=== PATIENT | male | born 1985 | race Caucasian/White ===

== ENCOUNTER → 2017-11-26 15:48 | Outpatient (REF) | payer MEDICAID, SELFPAY ==
[2017-11-26 17:40] LABS: Basophils # 0.1 K/mm3 (0-0.2); Basophils % 0.7 % (0.1-2.0); Eosinophils # 0.2 K/mm3 (0.0-0.4); Eosinophils % 2.5 % (0.1-12.0); Hematocrit 52.1 % (42.0-52.0); Hemoglobin 17.4 g/dL (14.1-18.0); Lymphocytes # 2.4 K/mm3 (0.7-4.5); Lymphocytes % 31.2 K/mm3 (10-50); Mean Corpuscular HGB Conc 33.5 g/dL (31.8-35.4); Mean Corpuscular Volume 89.7 fl (80-94); Mean Platelet Volume 8.6 fl (7.4-10.4); Monocytes # 0.4 K/mm3 (0.1-1.0); Neutrophils # 4.6 K/mm3 (1.8-7.8); Neutrophils % 60.6 % (37.0-80.0); Platelet Count 198 K/mm3 (142-424); Red Blood Count 5.81 M/mm3 (4.60-6.20); White Blood Count 7.6 K/mm3 (4.8-10.8)
[2017-11-26 18:54] LABS: Alanine Aminotransferase 99 U/L (12-78); Albumin Level 3.7 gm/dL (3.4-5.0); Alkaline Phosphatase 89 U/L (46-116); Anion Gap 12.3 mEq/L (5-15); Aspartate Amino Transferase 50 U/L (15-37); Bilirubin,Total 0.3 mg/dL (0.2-1.0); Blood Urea Nitrogen 14 mg/dL (7-18); Calcium 9.3 mg/dL (8.5-10.1); Carbon Dioxide 29 mmol/L (21.0-32.0); Chloride 106 mmol/L (98-107); Chol/HDL Ratio 4.1 (1-3.5); Cholesterol 143 mg/dL (140-200); Creatinine,Serum 1.17 mg/dL (0.70-1.30); Estimated Glomerular Filt Rate 72 ml/min (>60); Free T4 (Free Thyroxine) 1.01 ng/dl (0.76-1.46); GFR (African American) 87 ML/MIN (>60); Globulin 3.8 gm/dl (1.3-3.2); Glucose 105 mg/dL (74-106); HDL Cholesterol 35 mg/dL (27-67); LDL Cholesterol 65 mg/dL (0-130); Potassium 4.3 mmoL/L (3.5-5.1); Sodium 143 mmol/L (136-145); Thyroid Stimulating Hormone 1.65 uIU/ml (0.358-3.740); Total Protein,Serum 7.5 gm/dL (6.4-8.2); Triglycerides 213 mg/dL (30-200); VLDL Cholesterol 43 mg/dL (0-40)
[2017-11-26 19:33] LABS: Hemoglobin A1C 5.6 % (0.0-7.0)
[2017-11-29 13:32] LABS: Vitamin D 25 Hydroxy 29.6 ng/mL (30.0-100.0)
== END ==
LOC: LAB 15:48
PROVIDERS: Visit Provider Nurse Practitioner Family
DX: I10 Essential (primary) hypertension (principal); R53.83 Other fatigue
CPT/HCPCS: 80053; 80061; 82652; 83036; 84439; 84443; 85025

== ENCOUNTER → 2017-12-03 09:01 | Outpatient (CLI) | payer MEDICAID, SELFPAY | PROVIDERS: Visit Provider Nurse Practitioner Family | DX: R74.8 Abnormal levels of other serum enzymes (principal) ==

== ENCOUNTER → 2018-01-02 08:53 | Outpatient (REF) | payer MEDICAID, SELFPAY ==
[2018-01-04 08:30] LABS: Hep A Ab, IgM Negative (Negative); Hepatitis B Core Antibody IgM Negative (Negative); Hepatitis B Surface Antigen Negative (Negative)
[2018-01-04 18:28] LABS: Hepatitis C Antibody <0.1 s/co ratio (0.0-0.9)
== END ==
LOC: LAB 08:53
PROVIDERS: Visit Provider Nurse Practitioner Family
DX: R74.8 Abnormal levels of other serum enzymes (principal)
CPT/HCPCS: 80074

== ENCOUNTER → 2018-12-11 13:29 | Outpatient (CLI) | payer OTHER, SELFPAY | PROVIDERS: PCP Nurse Practitioner Family; Visit Provider Nurse Practitioner Family | DX: M54.2 Cervicalgia (principal) ==

== ENCOUNTER → 2019-12-14 14:53 | Outpatient (CLI) | payer BC, SELFPAY ==
[2019-12-16 13:31] LABS: Covid-19 Nasal PCR Sendout Lex Not Detected
== END ==
LOC: COVID.OUT 14:55
PROVIDERS: PCP Emergency Medicine; Visit Provider Emergency Medicine
DX: Z03.818 Encounter for observation for suspected exposure to other biological agents ruled out (principal)
CPT/HCPCS: U0004

== ENCOUNTER 2023-02-23 15:39 | Observation (INO) | payer OTHER, SELFPAY ==
[2023-02-23] VITALS (7 sets, daily range): BP systolic 146–191; BP diastolic 64–107; PULSE 77–106; RESP 18–20; TEMP 36.8–37.3; O2SAT 98–100; BMI 35.9; BMI 35.0
[2023-02-23 16:05] LABS: Microscopic, Urine URINE MICROSCOPIC (MICROSCOPIC)
[2023-02-23 16:13] LABS: Appearance,Urine CLEAR (Clear); Color,Urine YELLOW (Yellow)
[2023-02-23 16:14] LABS: Blood, Urine Negative (Negative); Glucose,Urine (UA) 3+ (Negative); Ketones,Urine 2+ (Negative); Leukocyte Esterase,Urine Negative (Negative); Nitrate,Urine Negative (Negative); Protein,Urine TRACE (Negative); Specific Gravity, Urine 1.015 (1.005-1.030)
[2023-02-23 16:16] LABS: Bilirubin,Urine 1+ (Negative)
[2023-02-23 16:16] LABS: Basophils % 0.2 % (0.1-2.0); Eosinophils # 0.1 K/mm3 (0.0-0.4); Eosinophils % 0.5 % (0.1-12.0); Hemoglobin 12.6 g/dL (14.1-18.0); Lymphocytes # 1.8 K/mm3 (0.7-4.5); Lymphocytes % 15.4 % (10-50); Mean Corpuscular HGB Conc 30.7 g/dL (31.8-35.4); Mean Corpuscular Hemoglobin 21.7 pg (27.0-31.2); Mean Corpuscular Volume 70.6 fl (80-94); Mean Platelet Volume 8.6 fl (7.4-10.4); Monocytes # 0.6 K/mm3 (0.1-1.0); Monocytes % 4.9 % (1.7-9.3); Neutrophils # 9.1 K/mm3 (1.8-7.8); Neutrophils % 78.9 % (37.0-80.0); Platelet Count 194 K/mm3 (142-424); Red Blood Count 5.81 M/mm3 (4.60-6.20); Red Cell Distribution Width 19.2 % (11.5-17.5); White Blood Count 11.5 K/mm3 (4.8-10.8)
[2023-02-23 16:17] LABS: Alanine Aminotransferase 57 U/L (12-78); Albumin Level 3.9 g/dl (3.5-5.0); Albumin/Globulin Ratio 0.9 (1.1-1.8); Alkaline Phosphatase 105 U/L (38-126); Anion Gap 17.1 mEq/L (5-15); Aspartate Amino Transferase 49 U/L (17-59); Bilirubin,Total 1.9 mg/dl (0.2-1.3); Blood Urea Nitrogen 11 mg/dl (9-20); Calcium 8.9 mg/dl (8.4-10.2); Carbon Dioxide 24 mmol/L (22.0-30.0); Chloride 96 mmol/L (98-107); Creatinine Clearance Estimated 281 mL/min (50-200); Estimated Glomerular Filt Rate 150 ml/min (>60); GFR (African American) 181 ML/MIN (>60); Globulin 4.3 g/dL (1.3-3.2); Glucose 314 mg/dl (74-100); Potassium 4.1 mmoL/L (3.5-5.1); Sodium 133 mmol/L (136-145); Total Protein,Serum 8.2 g/dl (6.3-8.2)
[2023-02-23 16:20] LABS: Lipase 704 U/L (23-300)
--- NOTE | 2023-02-23 16:20 | PC.NURSE ---
Dr. Tomlin at BS
--- NOTE | 2023-02-23 16:22 | PC.NURSE ---
notified dr. anna of critical lipase
--- NOTE | 2023-02-23 16:25 | PC.NURSE ---
Dr. Tomlin at BS with [employer]
--- NOTE | 2023-02-23 16:32 | CT_ITS ---
PROCEDURE INFORMATION: Exam: CT Abdomen And Pelvis With Contrast Exam date and time: 02/23/2023 4:47 PM Age: 38 years old Clinical indication: Pain; Other: Epigastric; Additional info: Epigastric abd pain, worsening, free fluid on US TECHNIQUE: Imaging protocol: Computed tomography of the abdomen and pelvis with contrast. Radiation optimization: All CT scans at this facility use at least one of these dose optimization techniques: automated exposure control; mA and/or kV adjustment per patient size (includes targeted exams where dose is matched to clinical indication); or iterative reconstruction. Contrast material: ISOVUE; Contrast volume: 75 ml; Contrast route: IV; REPORTING DATA: Count of CT and Cardiac NM exams in prior 12 months: This patient has received 0 known CTs and 0 known cardiac nuclear medicine studies in the 12 months prior to the current study. COMPARISON: CR (AP PELVIS, PELVIS, PELVIS AP) 12/01/2018 6:49 AM FINDINGS: Liver: Hepatic cirrhosis. Gallbladder and bile ducts: Normal. No calcified stones. No ductal dilation. Pancreas: Normal. No ductal dilation. Spleen: Splenomegaly measures 15.5 cm in craniocaudal dimension. Adrenal glands: Normal. No mass. Kidneys and ureters: Normal. No hydronephrosis. Stomach and bowel: Marked wall thickening within small bowel loops in the right abdomen, with wall measuring up to 12 mm. Closed loop obstruction can not be excluded. Appendix: No evidence of appendicitis. Intraperitoneal space: Adjacent mesenteric edema. No proximal obstruction. Mild abdominal and pelvic ascites. Vasculature: Esophageal varices. Splenorenal varices. Recanalization of the umbilical vein. Lymph nodes: Unremarkable. No enlarged lymph nodes. Urinary bladder: Unremarkable as visualized. Reproductive: Unremarkable as visualized. Bones/joints: Unremarkable. No acute fracture. Soft tissues: Unremarkable. IMPRESSION: 1. Marked wall thickening within small bowel loops in the right abdomen, with wall measuring up to 12 mm. Adjacent mesenteric edema. No proximal obstruction. Closed loop obstruction can not be excluded. 2. Hepatic cirrhosis. 3. Sequela of portal hypertension as detailed above. 4. Mild abdominal and pelvic ascites.
--- NOTE | 2023-02-23 16:34 | HMH.EDGENADL ---
Discharge Plan Disposition Patient Disposition: Admitted Chief Complaint: Abdominal Pain Referrals Follow up/Referrals: Barbara Painting PA [Primary Care Provider] - See instructions Clinical Impressions Clinical Impression: Acute pancreatitis, Cirrhosis, Ascites, Hypertension, portal Instructions Patient Instructions: DI for Acute Abdominal Pain Discharge ED Provider: John Petersen General Adult HPI General Chief complaint: Abdominal Pain Stated complaint: upper stomach pain Time Seen by Provider: 02/23/23 16:14 Mode of Arrival: Ambulatory Source of Information: Patient Limitations: No Limitations Description of Symptoms (Recalled from ER Triage Doc. by RN): Patient reports constant RUQ pain. States he was seen at [facility] where he was diagnosed with new onset diabetes. States that the pain is worse after eating. History of Present Illness HPI narrative: Patient is a 38-year-old male here with worsening epigastric pain following a recent ED visit. States this began several days ago he went to [place] emergency department where he had a right upper quadrant ultrasound and lab tests that have the results with him ultrasound was read as no acute abnormality, lipase and LFTs were within normal limits. Was told to follow-up with a GI doctor outpatient. Since that time he had worsening epigastric pain and pretty severe and he has not had anything to eat since that time. No vomiting or diarrhea. He does state that he drinks heavily 6-7 beers a day on average and his last drink was just prior to his ED visit at [facility]. Denies any fevers or chills. No history of any pancreatitis. No history of any hypertriglyceridemia. Related Data Allergies Allergy/AdvReac Type Severity Reaction Status Date / Time Penicillins [PENICILLINS] Allergy Unknown Verified 02/11/20 08:23 [facility] Disclaimer: The information contained in this section may have been updated after the patient was seen, as this information can be updated by other users. Social History Smoking Status: Never smoker alcohol intake: never substance use type: former substance user and opiates current occupational status: employed Travel in the last 8 weeks: None household members: spouse housing: house ROS Obtained: Yes All systems reviewed & no additional complaints except as documented Physical Exam General General appearance: alert Respiratory Respiratory exam: Present normal lung sounds bilaterally Cardiovascular Cardiovascular exam: Present regular rate; Absent tachycardia Abdominal Exam Abdominal exam: Present distention and tenderness (Epigastric tenderness palpation is no rebound or guarding elsewhere no fluid wave) Neurological Exam Neurological exam: Present alert and oriented X3 Medical Decision Making Robbi Inquiry Pt receiving controlled substance: No Vital Signs: 02/23/23 15:40 02/23/23 16:54 02/23/23 17:00 Temperature 98.2 F Temperature Source Oral Pulse Rate 80 84 Pulse Rate [Radial] 106 H Respiratory Rate 18 Blood Pressure 156/80 H 157/86 H Blood Pressure [Right Arm] 191/107 H Blood Pressure Mean 105 110 Blood Pressure Mean [Right Arm] 135 Blood Pressure Source [Right Arm] Automatic Cuff Blood Pressure Position [Right Arm] Sitting 02 Sat by Pulse Oximetry 98 100 100 Oxygen Delivery Method Room Air Lab Data Lab Results 02/23/23 15:46: Urine Color Yellow, Urine Appearance Clear, Urine pH 6.0, Ur Specific [place] 1.015, Urine Protein Trace, Urine Glucose (UA) 3+, Urine Ketones 2+, Urine Blood Negative, Urine Nitrate Negative, Urine Bilirubin 1+ A, Urine Urobilinogen 2.0, Ur Leukocyte Esterase Negative, Urine RBC None, Urine WBC Occasional, Ur Squamous Epith Cells None, Urine Bacteria None 02/23/23 15:50: WBC 11.5 H, RBC 5.81, Hgb 12.6 L, Hct 41.0 L, MCV 70.6 L, MCH 21.7 L, MCHC 30.7 L, RDW 19.2 H, Plt Count 194, MPV 8.6, Neut % (Auto) 78.9, Lymph % (Auto) 15.4, [place] % (Auto) 4.9,
[2023-02-23 16:35] LABS: WBC,Urine Occasional #/hpf (0-3)
[2023-02-23 16:45] LABS: Prothrombin Time 11.8 seconds (10.1-12.5)
--- NOTE | 2023-02-23 16:49 | PC.NURSE ---
pt returned from radiology.
--- NOTE | 2023-02-23 16:49 | PC.NURSE ---
Pt returned from RAD
--- NOTE | 2023-02-23 17:20 | PC.NURSE ---
ER MD Tomlin speaking with Dr. Garza
--- NOTE | 2023-02-23 17:23 | PC.NURSE ---
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
--- NOTE | 2023-02-23 17:44 | PC.NURSE ---
Report given to Fern on Med Surg.
--- NOTE | 2023-02-23 17:44 | PC.NURSE ---
Pt transferred to 2nd floor via wheelchair with SRNA
--- NOTE | 2023-02-23 18:15 | PC.NURSE ---
A&OX4. TOLERATING RA WELL. PT HAS HAD NO NEEDS OR C/O THUS FAR SINCE ARRIVAL TO FLOOR. AT BEDSIDE. VSS.
--- NOTE | 2023-02-23 18:44 | EXP.HP ---
History of Present Illness *Admission Date: 02/23/23 *Reason for visit:: abdominal pain *History of present illness: Mr. Mistry is a 38-year-old male with history of hypertension, obesity, alcoholism. Presented to the ER because of constant right upper quadrant pain. States he was seen at [place] a few days ago where he was diagnosed with new onset diabetes. Denies any other abnormal findings after doing an ultrasound of his abdomen. Was sent home. On arrival to the ER, patient states he been having worsening epigastric and right upper quadrant pain for the past week. Previous ER visit with reportedly normal lipase and LFTs. Was recommended to follow-up with a GI doctor as an outpatient. His pain is only worsened since last ER visit at outside hospital. He has had some nausea, diarrhea. No julienne emesis. Previously drank heavily with 6-7 beers a day on average, last drink about a week ago. Denies any fever, chills, cough, shortness of breath, chest pain. No previous history of cirrhosis that he knows of or pancreatitis. Work-up in the ER positive for elevated lipase in the 700s. CT of the abdomen shows inflammation of small bowel in the right side of his abdomen along with mesenteric inflammation. Liver concerning for signs of cirrhosis with portal hypertension. Ascites appreciated. ER consulted medicine for admission for management of his pancreatitis and abdominal pain. On admission to the floor, patient is in bedside chair. States he is more comfortable in the chair than lying down. Stable on room air. Afebrile. Denies any shortness of breath or chest pain. Abdomen tender in right side, less so on the left. No rebound on the right but questionable rebound on the left. Has active bowel sounds. Appears uncomfortable. [facility] Disclaimer: The information contained in this section may have been updated after the patient was seen, as this information can be updated by other users. Medical History (Updated 02/23/23 @ 19:38 by Shant Garza MD) Hypertension Obesity (BMI 30.0-34.9) Family History (Updated 02/23/23 @ 19:21 by Shant Garza MD) Family history non-contributory Social History Smoking Status: Never smoker alcohol intake: never substance use type: former substance user and opiates current occupational status: employed Travel in the last 8 weeks: None household members: spouse housing: house Review of Systems Review of Systems Review of systems (narrative): 14 point review of systems performed, pertinent positives and negatives as per HPI Meds Home Medications and Allergies Home Medications Medication Instructions Recorded Confirmed Type metformin 500 mg tablet 500 mg PO DAILY Diabetes 02/23/23 02/23/23 History pantoprazole 40 mg tablet,delayed 40 mg PO DAILY gerd 02/23/23 02/23/23 History release New Prescriptions to Start Prescriptions: Allergies Allergy/AdvReac Type Severity Reaction Status Date / Time Penicillins [PENICILLINS] Allergy Unknown Verified 02/11/20 08:23 Exam Data for Last 24 hours Vital signs and Labs for Last 24 Hours: Temp Pulse Resp BP Pulse Ox O2 Del Method 98.2 F 77 18 146/64 H 98 Room Air 02/23/23 18:00 02/23/23 18:00 02/23/23 18:00 02/23/23 18:00 02/23/23 18:00 02/23/23 18:36 Laboratory Results - last 24 hr 02/23/23 15:46: Urine Color Yellow, Urine Appearance Clear, Urine pH 6.0, Ur Specific [place] 1.015, Urine Protein Trace, Urine Glucose (UA) 3+, Urine Ketones 2+, Urine Blood Negative, Urine Nitrate Negative, Urine Bilirubin 1+ A, Urine Urobilinogen 2.0, Ur Leukocyte Esterase Negative, Urine RBC None, Urine WBC Occasional, Ur Squamous Epith Cells None, Urine Bacteria None 02/23/23 15:50: WBC 11.5 H, RBC 5.81, Hgb 12.6 L, Hct 41.0 L, MCV 70.6 L, MCH 21.7 L, MCHC 30.7 L, RDW 19.2 H, Plt Count 194, MPV 8.6, Neut % (Auto) 78.9, Lymph % (Auto) 15.4, [place] % (Auto) 4.9, Eos % (Auto) 0.5, Baso % (Auto) 0.2, Neut
[2023-02-23 19:52] LABS: Hemoglobin A1C 10.9 % (4.0-6.0)
[2023-02-23 20:03] LABS: POC Glucose,Bedside 239 (70-110)
[2023-02-24 04:00] VITALS: BP 159/89; PULSE 91; RESP 18; TEMP 36.9; O2SAT 94; BMI 35.3
--- NOTE | 2023-02-24 05:21 | PC.NURSE ---
no acute changes t/o shift. pt passing gas. c/o abd pain, tx per aug. denies n/v. used k-pad for safety
--- NOTE | 2023-02-24 05:23 | PC.NURSE ---
no acute changes t/o shift. pt passing gas. c/o abd pain, tx per aug. denies n/v. used k-pad for pain relief
[2023-02-24 05:56] LABS: POC Glucose,Bedside 216 (70-110)
[2023-02-24 07:28] VITALS: BP 182/90; PULSE 79; RESP 16; TEMP 36.8; O2SAT 99
[2023-02-24 07:30] LABS: Basophils % 0.2 % (0.1-2.0); Eosinophils # 0.1 K/mm3 (0.0-0.4); Hematocrit 39.8 % (42.0-52.0); Lymphocytes # 1.3 K/mm3 (0.7-4.5); Lymphocytes % 20.9 % (10-50); Mean Corpuscular HGB Conc 30.2 g/dL (31.8-35.4); Mean Corpuscular Hemoglobin 21.7 pg (27.0-31.2); Mean Corpuscular Volume 71.9 fl (80-94); Mean Platelet Volume 8.8 fl (7.4-10.4); Monocytes # 0.3 K/mm3 (0.1-1.0); Monocytes % 5.1 % (1.7-9.3); Neutrophils # 4.6 K/mm3 (1.8-7.8); Neutrophils % 72.9 % (37.0-80.0); Platelet Count 149 K/mm3 (142-424); Red Blood Count 5.54 M/mm3 (4.60-6.20); Red Cell Distribution Width 19.3 % (11.5-17.5); White Blood Count 6.4 K/mm3 (4.8-10.8)
[2023-02-24 07:32] LABS: INR 1.08 (0.9-1.1); Prothrombin Time 11.6 seconds (10.1-12.5)
[2023-02-24 07:33] LABS: Chol/HDL Ratio 3.7 (1-3.5); Cholesterol 103 mg/dl (140-200); HDL Cholesterol 28 mg/dl (40-60); Triglycerides 106 mg/dl (30-150); VLDL Cholesterol 21 mg/dL (0-40)
[2023-02-24 07:35] LABS: Alanine Aminotransferase 42 U/L (12-78); Albumin Level 3.5 g/dl (3.5-5.0); Albumin/Globulin Ratio 0.9 (1.1-1.8); Alkaline Phosphatase 92 U/L (38-126); Anion Gap 11.8 mEq/L (5-15); Aspartate Amino Transferase 34 U/L (17-59); Bilirubin,Total 1.3 mg/dl (0.2-1.3); Blood Urea Nitrogen 10 mg/dl (9-20); Calcium 8.6 mg/dl (8.4-10.2); Carbon Dioxide 29 mmol/L (22.0-30.0); Chloride 96 mmol/L (98-107); Creatinine Clearance Estimated 277 mL/min (50-200); Estimated Glomerular Filt Rate 150 ml/min (>60); GFR (African American) 181 ML/MIN (>60); Globulin 3.7 g/dL (1.3-3.2); Glucose 212 mg/dl (74-100); Magnesium 1.8 mg/dl (1.6-2.3); Potassium 3.8 mmoL/L (3.5-5.1); Sodium 133 mmol/L (136-145); Total Protein,Serum 7.2 g/dl (6.3-8.2)
[2023-02-24 07:44] LABS: C-Reactive Protein 80.1 mg/L (0-4); Direct LDL Cholesterol 52.36 mg/dL (100-129)
[2023-02-24 07:56] LABS: Lipase 81 U/L (23-300)
[2023-02-24 08:05] LABS: Erythrocyte Sedimentation Rate 16 mm/hr (0-15)
[2023-02-24 08:18] LABS: Iron 37 ug/dL (49-181)
[2023-02-24 08:27] LABS: Total Iron Binding Capacity 342 ug/dL (261-462)
--- NOTE | 2023-02-24 10:51 | HMH.PHAINT1 ---
Pharmacy Intervention Comments: MEDICATION RECONCILIATION COMPLETED ON PATIENT USING EXTERNAL FILL HISTORY FROM PHARMACY. -SAMMY SANDOVAL, [employer]
[2023-02-24 11:04] VITALS: BP 172/82; PULSE 78; RESP 16; TEMP 36.8; O2SAT 99
[2023-02-24 11:21] LABS: POC Glucose,Bedside 223 (70-110)
[2023-02-24 15:00] VITALS: BP 168/96; PULSE 83; RESP 16; TEMP 36.8; O2SAT 98
--- NOTE | 2023-02-24 15:32 | EXP.ACUTE.PN ---
Subjective *Date: 02/24/23 *Time: 15:32 Interval history: Patient feeling better this morning. Passed gas frequently overnight and reports improvement in abdominal discomfort. No nausea or vomiting overnight. Blood pressure elevated on morning rounds at 182/92. Has been tolerating liquid intake without difficulty. No fevers. Medical Exam Vital signs and Labs for Last 24 Hours: Vital Signs Temp Pulse Pulse Resp BP BP Pulse Ox 02/24/23 15:00 98.2 F 83 16 168/96 H 98 02/24/23 14:53 02/24/23 12:31 02/24/23 11:04 98.2 F 78 16 172/82 H 99 02/24/23 10:49 02/24/23 09:00 02/24/23 07:28 98.2 F 79 16 182/90 H 99 02/24/23 04:00 98.5 F 91 H 18 159/89 H 94 L 02/24/23 06:41 02/24/23 04:41 02/24/23 03:00 02/24/23 01:00 02/23/23 23:00 02/23/23 21:00 02/23/23 20:00 99.1 F 80 20 174/90 H 99 02/23/23 19:59 02/23/23 18:36 02/23/23 18:26 02/23/23 18:00 98.2 F 77 18 146/64 H 98 02/23/23 17:45 98.4 F 81 18 146/64 H 02/23/23 17:31 89 177/94 H 99 02/23/23 17:00 84 157/86 H 100 02/23/23 16:54 80 156/80 H 100 02/23/23 15:40 98.2 F 106 H 18 191/107 H 98 O2 Del Method 02/24/23 15:00 Room Air 02/24/23 14:53 Room Air 02/24/23 12:31 Room Air 02/24/23 11:04 Room Air 02/24/23 10:49 Room Air 02/24/23 09:00 Room Air 02/24/23 07:28 Room Air 02/24/23 04:00 Room Air 02/24/23 06:41 Room Air 02/24/23 04:41 Room Air 02/24/23 03:00 Room Air 02/24/23 01:00 Room Air 02/23/23 23:00 Room Air 02/23/23 21:00 Room Air 02/23/23 20:00 Room Air 02/23/23 19:59 Room Air 02/23/23 18:36 Room Air 02/23/23 18:26 Room Air 02/23/23 18:00 Room Air 02/23/23 17:45 Room Air 02/23/23 17:31 02/23/23 17:00 02/23/23 16:54 02/23/23 15:40 Room Air Intake and Output 02/23/23 02/24/23 02/24/23 23:59 07:59 15:59 Intake Total 490 / 910 420 / 910 Output Total 0 / 0 0 / 0 Balance 490 / 910 420 / 910 Intake: Intake, Oral Amount 330 / 750 420 / 750 Intake, Other Amount 60 / 60 Intake, Total IV Amount 100 / 100 Metronidaz/Sod Chl 500 mg In 100 / 100 100 ml @ 100 mls/hr IV Q8H [facility] Rx#:[id number] Output: Output, Urine Amount 0 / 0 0 / 0 Other: Intake, Other Source Saline Solution Number of Unmeasured Voids 1 1 Weight 117.197 kg 118.388 kg Patient Weight 02/24/23 23:59 Weight 118.388 kg Laboratory Results - last 24 hr 02/23/23 15:46: Urine Color Yellow, Urine Appearance Clear, Urine pH 6.0, Ur Specific [place] 1.015, Urine Protein Trace, Urine Glucose (UA) 3+, Urine Ketones 2+, Urine Blood Negative, Urine Nitrate Negative, Urine Bilirubin 1+ A, Urine Urobilinogen 2.0, Ur Leukocyte Esterase Negative, Urine RBC None, Urine WBC Occasional, Ur Squamous Epith Cells None, Urine Bacteria None 02/23/23 15:50: WBC 11.5 H, RBC 5.81, Hgb 12.6 L, Hct 41.0 L, MCV 70.6 L, MCH 21.7 L, MCHC 30.7 L, RDW 19.2 H, Plt Count 194, MPV 8.6, Neut % (Auto) 78.9, Lymph % (Auto) 15.4, [place] % (Auto) 4.9, Eos % (Auto) 0.5, Baso % (Auto) 0.2, Neut # (Auto) 9.1 H, Lymph # (Auto) 1.8, [place] # (Auto) 0.6, Eos # (Auto) 0.1, Baso # (Auto) 0.0, PT 11.8, INR 1.10, Sodium 133 L, Potassium 4.1, Chloride 96 L, Carbon Dioxide 24, Anion Gap 17.1 H, BUN 11, Creatinine 0.60 L, Estimated Creat Clear 281, Estimated GFR 150, Est GFR ( Amer) 181, Glucose 314 H, Hemoglobin A1c 10.9 H, Calcium 8.9, Total Bilirubin 1.9 H, AST 49, ALT 57, Alkaline Phosphatase 105, Total Protein 8.2, Albumin 3.9, Globulin 4.3 H, Albumin/Globulin Ratio 0.9 L, Lipase 704 H 02/23/23 19:52: POC Glucose 239 H 02/24/23 05:14: POC Glucose 216 H 02/24/23 07:07: WBC 6.4 D, RBC 5.54, Hgb 12.0 L, Hct 39.8 L, MCV 71.9 L, MCH 21.7 L, MCHC 30.2 L, RDW 19.3 H, Plt Count 149, MPV 8.8, Neut % (Auto) 72.9, Lymph % (Auto) 20.9, [place] % (Auto) 5.1, Eos % (Auto) 1.0, Baso % (Auto) 0.2, Neut # (Auto)
[2023-02-24 16:53] LABS: POC Glucose,Bedside 214 (70-110)
--- NOTE | 2023-02-24 18:45 | PC.NURSE ---
Pt has reported abdominal pain regularly this shift and given celina medication for relief. Medication seems to relieve pain enough to allow pt to rest comfortably. Pt blood glucose has been elevated this shift and has required coverage of 4 units each time. Nurse x2 provide education for insulin administration, Pt demonstrated and verbalized understanding, questions were encouraged and answered. Pt has upcoming ultrasound of liver scheduled for tomorrow, Pt denies other needs at this time.
[2023-02-24 20:00] VITALS: BP 157/77; PULSE 89; RESP 18; TEMP 37.1; O2SAT 99
[2023-02-24 20:41] LABS: POC Glucose,Bedside 214 (70-110)
[2023-02-25] VITALS: BP 145/76; PULSE 84; RESP 18; TEMP 37; O2SAT 98
--- NOTE | 2023-02-25 | US_ITS ---
FINAL REPORT CLINICAL HISTORY: Right upper quadrant pain and cirrhosis COMPARISON: None FINDINGS: Sonographic images of the right upper quadrant were obtained. The pancreas is partially obscured. There is a heterogeneous hepatic echotexture consistent with history of cirrhosis. There is a moderate amount of ascites. The portal vein measures 16 mm, dilated. It has normal directional flow. The gallbladder appears normal without evidence of gallstones.There is no evidence of biliary ductal dilatation.The common duct measures 3 mm. Limited images of the right kidney are unremarkable. IMPRESSION: Hepatic appearance consistent with history of cirrhosis. Moderate ascites. Dilated portal vein. Reviewed, Interpreted and Dictated by Alvaro Olivas III, MD Transcribed by Bailee Foster Authenticated and . [facility]
[2023-02-25 04:00] VITALS: BP 146/80; PULSE 79; RESP 18; TEMP 36.8; O2SAT 99; BMI 35.2
[2023-02-25 06:24] LABS: POC Glucose,Bedside 186 (70-110)
[2023-02-25 07:35] LABS: Basophils % 0.2 % (0.1-2.0); Eosinophils # 0.1 K/mm3 (0.0-0.4); Eosinophils % 2.1 % (0.1-12.0); Hematocrit 40.1 % (42.0-52.0); Hemoglobin 12.2 g/dL (14.1-18.0); Lymphocytes # 1.1 K/mm3 (0.7-4.5); Lymphocytes % 24.7 % (10-50); Mean Corpuscular HGB Conc 30.4 g/dL (31.8-35.4); Mean Corpuscular Hemoglobin 21.9 pg (27.0-31.2); Mean Platelet Volume 7.5 fl (7.4-10.4); Monocytes # 0.3 K/mm3 (0.1-1.0); Monocytes % 6.8 % (1.7-9.3); Neutrophils % 66.2 % (37.0-80.0); Platelet Count 160 K/mm3 (142-424); Red Blood Count 5.57 M/mm3 (4.60-6.20); Red Cell Distribution Width 19.5 % (11.5-17.5); White Blood Count 4.5 K/mm3 (4.8-10.8)
[2023-02-25 07:38] LABS: Alanine Aminotransferase 39 U/L (12-78); Albumin Level 3.4 g/dl (3.5-5.0); Albumin/Globulin Ratio 0.9 (1.1-1.8); Alkaline Phosphatase 90 U/L (38-126); Anion Gap 11.1 mEq/L (5-15); Aspartate Amino Transferase 46 U/L (17-59); Blood Urea Nitrogen 10 mg/dl (9-20); Calcium 8.6 mg/dl (8.4-10.2); Carbon Dioxide 33 mmol/L (22.0-30.0); Chloride 97 mmol/L (98-107); Creatinine Clearance Estimated 236 mL/min (50-200); Estimated Glomerular Filt Rate 126 ml/min (>60); GFR (African American) 152 ML/MIN (>60); Globulin 3.6 g/dL (1.3-3.2); Glucose 193 mg/dl (74-100); Magnesium 1.9 mg/dl (1.6-2.3); Potassium 4.1 mmoL/L (3.5-5.1); Sodium 137 mmol/L (136-145)
[2023-02-25 07:43] LABS: C-Reactive Protein 47.6 mg/L (0-4)
[2023-02-25 07:53] VITALS: BP 146/88; PULSE 85; RESP 18; TEMP 36.9; O2SAT 97
[2023-02-25 09:40] LABS: Adenovirus F 40/41, stool Not Detected (NotDetected); Astrovirus Not Detected (NotDetected); Campylobacter Not Detected (NotDetected); Clostridium Difficile A/B, PCR Not Detected (NotDetected); Cryptosporidium Not Detected (NotDetected); Cyclospora Cayetanesis Not Detected (NotDetected); Entamoeba histolytica Not Detected (NotDetected); Enteroaggregative E coli Not Detected (NotDetected); Enteropathogenic E coli Not Detected (NotDetected); Enterotoxigenic E coli Not Detected (NotDetected); Giardia lamblia Not Detected (NotDetected); Norovirus Not Detected (NotDetected); Plesimonas Shigalloides, PCR Not Detected (NotDetected); Rotavirus A Not Detected (NotDetected); Salmonella, PCR Not Detected (NotDetected); Sapovirus Not Detected (NotDetected); Shiga-like toxin E coli Not Detected (NotDetected); Shigella Enterovasive E coli Not Detected (NotDetected); Vibrio Cholerae Not Detected (NotDetected); Vibrio, PCR Not Detected (NotDetected); Yersinia Entercolitica, PCR Not Detected (NotDetected)
[2023-02-25 11:17] VITALS: BP 150/84; PULSE 80; RESP 17; TEMP 36.8; O2SAT 99
[2023-02-25 11:55] LABS: POC Glucose,Bedside 193 (70-110)
--- NOTE | 2023-02-25 13:10 | DIET.NUTRFU ---
Patient plans to discharge today, he is a newly dx DM. Provided and reviewed multiple handouts on what foods to count and how many he is allowed to have. Also reviewed the dietary label and what values to look for. He was on metformin [employer] with A1c of 10.9. Family was present during instruction and they seemed receptive to information. provided contact information for further follow-up as needed.
--- NOTE | 2023-02-25 13:22 | EXP.DC.SUM ---
General Admission date:: 02/23/23 Discharge date: 02/25/23 HPI HPI HPI: Mr. Mistry is a 38-year-old male with history of hypertension, obesity, alcoholism. Presented to the ER because of constant right upper quadrant pain. States he was seen at [place] a few days ago where he was diagnosed with new onset diabetes. Denies any other abnormal findings after doing an ultrasound of his abdomen. Was sent home. On arrival to the ER, patient states he been having worsening epigastric and right upper quadrant pain for the past week. Previous ER visit with reportedly normal lipase and LFTs. Was recommended to follow-up with a GI doctor as an outpatient. His pain is only worsened since last ER visit at outside hospital. He has had some nausea, diarrhea. No julienne emesis. Previously drank heavily with 6-7 beers a day on average, last drink about a week ago. Denies any fever, chills, cough, shortness of breath, chest pain. No previous history of cirrhosis that he knows of or pancreatitis. Work-up in the ER positive for elevated lipase in the 700s. CT of the abdomen shows inflammation of small bowel in the right side of his abdomen along with mesenteric inflammation. Liver concerning for signs of cirrhosis with portal hypertension. Ascites appreciated. ER consulted medicine for admission for management of his pancreatitis and abdominal pain. On admission to the floor, patient is in bedside chair. States he is more comfortable in the chair than lying down. Stable on room air. Afebrile. Denies any shortness of breath or chest pain. Abdomen tender in right side, less so on the left. No rebound on the right but questionable rebound on the left. Has active bowel sounds. Appears uncomfortable. Hospital Course Hospital Course Hospital Course: 38-year-old male who presents with abdominal pain that is progressively worsened over the past week. Found to have elevation of lipase and CT imaging findings of inflammation of small intestines on right side of abdomen. Has had some clinical improvement overnight. Tolerating liquids. Advance diet today. Continues to require inpatient management. Repeat labs with CMP, CBC, mag, lipase, CRP ordered for the morning.. Problems addressed as follows: Pancreatitis Enteritis Cirrhosis, new diagnosis -Lipase elevated over 700 on admission, improved by the following morning to 81. Tolerating p.o. intake. . Passing flatus. Had bowel movement by day of discharge. Tolerated full liquid diet without pain. CT imaging reviewed and shows inflammation of small intestine on the right side with no obstruction. Differential includes viral enteritis, bacterial enteritis, ischemic bowel, portal vein thrombus, pancreatitis, alcohol induced enteritis. Obtain ultrasound of liver to evaluate portal flow, findings showing portal hypertension but no portal thrombosis. Liver echotexture consistent with cirrhosis. MELD of 6 on admission, Child-Avilez class A. Will need referral to hepatology/GI after discharge home. Given improvement, patient stable for discharge home. Referred to Dr. Hutchinson in [place] for further eval as an outpatient for cirrhosis. Diabetes, new diagnosis -A1c elevated at 10.9. With glargine and sliding scale during admission. Metformin held due to diarrhea. Continue metformin at discharge, increase to 30 units nightly. Continue until follows up with PCP, further adjustment in the outpatient setting. Glucose control has been improved with fingersticks in the high 100s to low 200s. Hypertension: initiated on irbesartan 75 mg daily Spent 35 minutes in discharge counseling, ddocumentation, chart review, and direct care with patient. Exam Data for Last 24 hours Vital signs and Labs for Last 24 Hours: Temp Pulse Resp BP Pulse Ox O2 Del Method 98.2 F 80 17 150/84 H 99 Room Air 02/25/23 11:17 02/25/23 11:17 02/25/23 11:17 02/25/23 11:17 02/25/23 11:17 02/25/23 11:17 Laboratory Re
--- NOTE | 2023-02-25 14:19 | SW/DCPLANNER ---
I have provided this patient an [facility] Resource List along w/ information on [facility]: patient has no further questions/needs at this time. The plan for this patient is to discharge home this afternoon.
--- NOTE | 2023-02-28 13:09 | CARE MANAGER ---
Spoke with family. Patient is doing well. Has follow up appointment with PCP today. Denies questions or concerns. SLAVA Darden
== END 2023-02-25 15:00 | disposition home or self-care (01) ==
LOC: ER 17:29 → 2ND 02-24 04:16
PROVIDERS: Nurse Practitioner Family; Student in an Organized Health Care Education/Training Program; Admitting Provider Internal Medicine Adolescent Medicine; Emergency Provider Emergency Medicine; PCP Student in an Organized Health Care Education/Training Program; Visit Provider Internal Medicine Adolescent Medicine
DX: K85.20 Alcohol induced acute pancreatitis without necrosis or infection (principal); I10 Essential (primary) hypertension; E11.9 Type 2 diabetes mellitus without complications; Z79.4 Long term (current) use of insulin; Z79.899 Other long term (current) drug therapy; K74.69 Other cirrhosis of liver; K70.11 Alcoholic hepatitis with ascites; K52.9 Noninfective gastroenteritis and colitis, unspecified
CPT/HCPCS: 36415; 74177; 76705; 80053; 80061; 81001; 82962; 83036; 83540; 83550; 83690; 83735; 85025; 85610; 85651; 86140; 87507; 99285; G0378; J1756; J2405; Q9967